=== PATIENT | male | born 1995 | race Caucasian/White ===

== ENCOUNTER 2025-08-07 08:39 | Emergency (ER) | payer OTHER, SELFPAY ==
[2025-08-07 08:49] VITALS: BP 132/66; PULSE 85; RESP 18; TEMP 36.9; O2SAT 100
--- OUTSIDE RECORDS SUMMARY | 2025-08-07 09:12 | XMS_ITS | Clinical Summary ---
Author Organization [facility] [address] Address [address] [place] [id number] Care Team Providers Care It Teacher Name Role Phone Unknown, Notinfile Primary Care Provider Unavail able Allergies No known active allergies Medications sertraline (ZOLOFT) 25 mg tablet Take 25 mg by mouth daily 2 Active buPROPion XL (WELLBUTRIN XL) 300 mg 24 hr tablet Take 300 mg by mouth every morning 2 Active testosterone cypionate (DEPO-TESTOTERON E) 200 mg/mL injection INJECT 0.3ML INTO THE MUSCLE EVERY WEEK 2 Active BD Luer-Rea Syringe 1 mL 20 gauge x 1 syringe as directed 2 Active BD Regular Bevel [place] 25 gauge x 5/8 needle as directed 2 Active nitrofurantoin monohydrate (MACROBID) 100 mg capsule 2 Active Active Problems No known active problems Social History Tobacco Use Types Packs/Day Years Used Date Smoking Tobacco: Never Smokeless Tobacco: Never Personal Safety Answer Date Recorded Getting School Help Needed Not on file 12/18 Comments Unknown Sex and Gender Information Value Date Recorded Sex Assigned at Not on file Legal Sex Male 5:39 PM CDT Gender Identity Transgender Male 05/29/2022 7:19 PM CDT Sexual Orientation Not on file Obstetrics History Last Filed Vital Signs Vital Sign Reading Time Taken Comments Blood Pressure 125/80 05/29/2022 7:10 PM CDT Pulse 78 05/29/2022 7:10 PM CDT Temperature 36.9 C (98.4 F) 05/29/2022 7:10 PM CDT Respiratory Rate 16 05/29/2022 7:10 PM CDT Oxygen Saturation 99% 05/29/2022 7:10 PM CDT Inhaled Oxygen Concentration - - Weight 61 kg (134 lb 6.4 oz) 05/29/2022 7:10 PM CDT Height 167.6 cm (5' 6) 05/29/2022 7:10 PM CDT Body Mass Index 21.69 05/29/2022 7:10 PM CDT Plan of Treatment Not on file [facility] Care Teams It Teacher Relationship Specialty Start Date End Date Unknown, Notinfile PCP - General 05/29/22
--- OUTSIDE RECORDS SUMMARY | 2025-08-07 09:12 | XMS_ITS | Patient Health Record ---
Author Organization [facility] Address [address] [facility] [address] [place] [phone] Care Team Providers Care Process Technician Name Role Phone Young Hooker MD Primary Care Provider Unavail able Reason For Referral No Information Medications Medication SIG (Take, Route, Frequency, Duration) Notes Start Date End Date Status Symbicort 160-4.5 MCG/ACT 2 puffs Inhala tion Twice a day Active ProAir HFA 108 (90 Base) MCG/ACT 2 puffs as needed Inhalation every 4 hrs Active Nasonex 50 MCG/ACT 2 sprays in each nos tril Nasally Once a day Active hydrOXYzine HCl 10 MG 1 tablet Orally Th ree times a day Active Symbicort 160-4.5 MCG/ACT 2 puffs Inhala tion Twice a day; Duration: 90 days 05/21/2014 Active ProAir HFA 108 (90 Base) MCG/ACT 2 puffs as needed Inhalation every 4 hrs Active Nasonex 50 MCG/ACT 2 sprays in each nos tril Nasally Once a day Active Testosterone Active Multivitamins 1 tablet Orally Once a day Active Problems Problem Type SNOMED Code ICD Code Onset Dates Problem Status W/U Status Risk Notes Problem Asthma (860802469) Asthma (493.90) Active confirmed Problem Allergic rhinitis (88803328) Allergic rhinitis (477.9) Active confirmed Plan Of Treatment Pending Test Test Name Order Date SPIROMETRY 04/09/2014 Insurance Providers Payer Name Payer Address Payer Phone Subscriber Number Group Number Insured Name Patient Relationship to Insured Coverage Start Date Coverage End Date [facility] [address] [place] [id number] Swati Shah Natural Child - Insured has Financial Responsibility [address] [facility] [address] [place] [phone] [id number] Oscar Shah Child - Insured has Financial Responsibility
--- OUTSIDE RECORDS SUMMARY | 2025-08-07 09:12 | XMS_ITS | Clinical Summary ---
Author Organization [facility] Address [address] [place] [address] Care Team Providers Care Pediatric Geneticist Name Role Phone Dean Berger MD Primary Care Provider [phone] Source Comments PLEASE NOTE, if this patient is a minor, it may be UNLAWFUL to discuss sensitive information that is contained in these records (such as FAMILY PLANNING, MENTAL HEALTH or SUBSTANCE ABUSE) with the minor patient's parent or other person without the patient's specific authorization.OCHYOGESH Allergies Active Allergy Reactions Criticality Noted Date Comments Banana High 04/04/2014 Medications albuterol sulfate 90 mcg/actuation inhaler Inhale 2 Puffs into the lungs every 4 (four) hours as needed albuterol sulfate 90 mcg/actuation HFA aerosol inhaler 01/20/20 22 Active cetirizine (ZYRTEC) 10 mg tabletIndication s:Non-seasonal allergic rhinitis, unspecified trigger Take 1 Tablet by mouth once daily 09/04/20 24 Active fluticasone (FLONASE) 50 mcg/actuation nasal sprayIndications :Non-seasonal allergic rhinitis, unspecified trigger Place 1 [place] in both nostrils 2 (two) times daily as needed for rhinitis or allergies 16 g 09/04/20 24 Active hydrOXYzine HCL (ATARAX) 10 mg tablet Take 10 mg by mouth nightly at bedtime as needed for anxiety or sleep 09/07/20 24 Active traZODone (DESYREL) 50 mg tablet Take 50 mg by mouth nightly at bedtime as needed 02/28/20 25 Active needle, disp, 20 G 20 gauge x 1 1 ndleIndications: Gender incongruence 1 Needle by miscellaneous route once a week , to draw up. 20 Each 05/09/20 25 Active needle, disp, 25 gauge (BD REGULAR BEVEL NEEDLES) 25 gauge x 5/8 ndleIndications: Gender incongruence 1 Needle Free Injection by NOT APPLICABLE route once a week To adminster. 20 Each 05/09/20 25 Active syringe, disposable, (BD LUER-NATALIYA SYRINGE) 1 mL syrgIndications: Gender incongruence 1 Syringe by miscellaneous route once a week , to draw up. 20 Each 05/09/20 25 Active drospirenone-eth inyl estradioL (NAVA) 3-0.02 mg per tabletIndication s:Gender incongruence Take 1 Tablet by mouth once daily , use all active pills, then discard placebo and immediately start next pack (continuous suppression). 112 Tablet 1 05/09/20 25 Active lisdexamfetamine 10 mg cap Take 10 mg by mouth daily. 06/07/20 25 Active estradioL (ESTRACE) 0.01 % (0.1 mg/gram) vaginal creamIndications :Vaginal atrophy Place 2 g vaginally nightly at bedtime for 14 days, THEN 2 g 2 times a week. 42.5 g 1 06/12/20 25 026 Active testosterone cypionate (DEPO-TESTOSTERO NE) 200 mg/mL injectionIndicat ions:Gender incongruence Inject 0.25 mL into the muscle once a week. 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 Continue current plan, check monitoring labs today. Family planning counseling 11/01/2024 Assessment & Plan (11/01/2024 3:06 PM TELEHEALTH NURSE EDUCATOR): Reviewed options, will start nuvaring Routine screening for STI (sexually transmitted infection) 09/04/2024 Sore throat, chronic 10/20/2023 Assessment & Plan (10/20/2023 12:30 PM TELEHEALTH NURSE EDUCATOR): M/l from PND from chronic AR, refer to A/I Need for vaccination 10/20/2023 Assessment & Plan (10/20/2023 12:31 PM TELEHEALTH NURSE EDUCATOR): Recommended flu and COVID Screening, cervical cancer 11/09/2021 Depressive disorder, major rcr, unspecified 05/18 Assessment & Plan (05/09/2025 12:23 PM CDT): Connected to psychiatry, therapy Currently off tx Assessment & Plan (09/04/2024 5:43 PM TELEHEALTH NURSE EDUCATOR): Connected to psychiatry, therapy Currently off tx Assessment & Plan (10/20/2023 12:29 PM TELEHEALTH NURSE EDUCATOR): Mood stable, cont' SSRI Reestablish with therapy Recurrent UTI 09/12/2019 Vaginal atrophy 08/20/2017 Assessment & Plan (11/01/2024 3:07 PM TELEHEALTH NURSE EDUCATOR): Monitor response to nuvaring Assessment & Plan (09/04/2024 5:44 PM TELEHEALTH NURSE EDUCATOR): Controlled, con't maintenance vaginal estradiol Assessment & Plan (10/20/2023 12:30 PM TELEHEALTH NURSE EDUCATOR): Controlled, con't maintenance vaginal estradiol Irritable bowel syndrome 01/15/2017 Allergic rhinitis NOS 04/03/2015 Acne other 04/03/2015 Asthma, intermittent, mild 04/03/2015 SCREENING FOR LIPOID DISORDERS 04/04/2014 Resolved Problems Problem Noted Date Diagnosed Date Resolved Date Abnormal weight gain 09/04/2024 025 Family history of hypercholesterolemia 05/09/2018 10/20/2023 Family history of cardiovascular disease 05/09/2018 10/20/2023 Exam routine 05/09/2018 10/20/2023 STD Screening 01/15/2017 09/04/2024 Endocrine disorder NOS 04/28/201505/09 Assessment & Plan (11/01/2024 3:05 PM TELEHEALTH NURSE EDUCATOR): Doing well on current hormone therapy, good adherence. Continue current plan, monitoring labs reviewed Assessment & Plan (09/04/2024 5:44 PM TELEHEALTH NURSE EDUCATOR): Doing well on current hormone therapy, good adherence. Continue current plan, monitoring labs reviewed Assessment & Plan (10/20/2023 12:29 PM TELEHEALTH NURSE EDUCATOR): Doing well on current hormone therapy, good adherence. Continue current plan, monitoring labs reviewed Encounters Date Type Department Care Team Description 05/09/2025 11:40 AM CDT Telemedicine Visit [facility] [address] [place] [address] Dean Berger MD from Last 3 Months Immunizations Immunization Administration Dates Next Due Flu, Preservative Free 08/03/2022,06/19/2018 INFLUENZA, SEASONAL, INJECTABLE 07/22/2024,08/21,12/11/2015 RANDOLPH COVID-19 VACCINE 12/22/2020 PFIZER COVID VACCINE, PURPLE CAP, 12+ 08/27/2021 PNEUMOCOCCAL CONJUGATE PCV 20 (Prevnar 20) 08/01 PNEUMOCOCCAL POLYSACCHARIDE PPV23 (Pneumovax 23) 04/25/2015 TDAP 06/17/2018 Family History Medical History Relation Name Comments Alcohol/Drug Abuse Brother 3 Diabetes Brother 3 Hypertension Brother 3 aDHD Brother 3 Depression Father mood NOS Diabetes Maternal Grandfather Cancer Maternal Grandmother Diabetes Maternal Grandmother Heart attack Maternal Grandmother Hypertension Mother Lung Disease Mother asthma chronic pain Mother High Cholesterol Other No Known Problems Paternal Grandfather No Known Problems Paternal Grandmother Relation Name Status Comments Brother 3 Father Alive Maternal Grandfather Maternal Grandmother Mother Alive Other Paternal Grandfather Paternal Grandmother Social History Tobacco Use Types Packs/Day Years Used Date Smoking Tobacco: Never Smokeless Tobacco: Never Tobacco Cessation:Counseling Given: Not Answered Alcohol Use Standard Drinks/Week Comments Yes 3 (1 standard drink = 0.6 oz pur e alcohol) Social Connections Answer Date Recorded Connectedness 0 07/12/2024 Financial Resource Strain Answer Date R ecorded Financial Resource Strain 0 2021 Stress Answer Date Recorded Stress 0 06/26/2022 Physical Activity Answer Date Recorded Physical Activity 0 06/26/2022 Food Insecurity Answer Date Recorded Food 0 07/13/2024 Transportation Needs Answer Date Record ed Transportation 0 06/26/2022 Housing Stability Answer Date Recorded Housing 0 06/26/2022 Safety and Environment Answer Date Chris rded Safety 0 06/26/2022 Utilities Answer Date Recorded Utilities 0 06/26/2022 Employment Answer Date Recorded Stress 0 07/12/2024 Comments Unknown Sex and Gender Information Value Date Recorded Sex Assigned at Female 10/20/2023 9:54 AM PST Legal Sex Female 6:33 PM PDT Gender Identity Non-binary/genderqueer 9:54 AM PST Sexual Orientation Queer 07/05/2022 6: 15 PM PDT Last Filed Vital Signs Vital Sign Reading Time Taken Comments Blood Pressure 124/70 09/04/2024 5:13 PM TELEHEALTH NURSE EDUCATOR Pulse 80 09/04/2024 5:13 PM TELEHEALTH NURSE EDUCATOR Temperature 36.7 C (98 F) 06/11/2022 2:06 PM CDT Respiratory Rate 17 09/04/2024 5:13 PM TELEHEALTH NURSE EDUCATOR Oxygen Saturation 96% 09/04/2024 5:13 PM TELEHEALTH NURSE EDUCATOR Inhaled Oxygen Concentration - - Weight 70.1 kg (154 lb 9.6 oz) 09/04/2024 5:13 P M TELEHEALTH NURSE EDUCATOR Height 167.6 cm (5' 6) 09/04/2024 5:13 PM TELEHEALTH NURSE EDUCATOR Body Mass Index 24.95 09/04/2024 5:13 PM TELEHEALTH NURSE EDUCATOR Plan of Treatment Health Maintenance Due Date Last Done Comments Anxiety Screening 1996 HPV Screening (self-collect) 1996 HPV Screening 1996 Hepatitis C Screening 1996 Pap + HPV 1996 Relationship Safety Screening/Counseling 02/21/2011 Depression Monitoring 02/08/2022 11/10/2021 , 10/13/2021, 09/13/2019 Imm-HPV (1 - 3-dose SCDM series) 02/21/2023 Alcohol and Drug Screen 10/18/2024 Cervical Cancer Screening 11/10/2024 Pap Smear 11/10/2024 11/10/2021 [id number] ( season) 2025 08/01/2024, 08/02/2022, 08/27/2021, Additional history exists Imm-Influenza (#1) 2025 07/22/2024, 1 , 06/19/2018, Additional history exists Syphilis Screening 09/04/2025 09/04/2024, 0 06/11/2022, 10/13/2021, Additional history exists Tobacco Screening 05/09/2026 05/09/2025 Hypertension Screening (#1) 09/04/2027 Imm-DTaP/Tdap/Td (2 - Td or Tdap) 06/17/2028 018 Imm-Pneumococcal Discontinued 08/01/2024, 04/25/2015 HIV Screening Completed 09/04/2024, 05/19, 10/13/2021, Additional history exists Cervical Ablation/Cold-Knife Conization Discontinued Cervical Cryotherapy Discontinued Colposcopy Discontinued Excision/Leep Discontinued HPV Genotyping Discontinued Imm-Hepatitis A Discontinued Imm-Hepatitis B Discontinued Vaginal Pap Discontinued Vulvoscopy Discontinued Procedures Procedure Name Priority Date/Time Associated Diagnosis Comments OTHER ORDERS SCANNED DOCUMENT 07/02/2025 2:00 AM CDT TESTOSTERONE, TOTAL, LC/MS/MS Routine 06/19/2025 11:29 AM CDT Gender incongruence ESTRADIOL, SERUM Routine 06/19/2025 11:2 9 AM CDT Gender incongruence COMPREHENSIVE METABOLIC PANEL W/ADJ CALCIUM Routine 06/19/2025 11:29 AM CDT Gender incongruence BLOOD COUNT COMPLETE AUTO&AUTO DIFRNTL WBC Routine 06/19/2025 11:29 AM CDT Gender incongruence HIV 1/2 AG & AB W/RFLX (4TH GEN) Routine 09/04/2024 5:54 PM TELEHEALTH NURSE EDUCATOR Routine screening for STI (sexually transmitted infection) SYPHILIS ANTIBODY CASCADING REFLEX Routine 09/04/2024 5:54 PM TELEHEALTH NURSE EDUCATOR Routine screening for STI (sexually transmitted infection) THINPREP IMAGING PAP REFLEX HPV MRNA E6/E7, CT/GT (Q) Routine 11/10/2021 6:07 PM TELEHEALTH NURSE EDUCATOR from Last 3 Months or Most Recently Relevant to Health Maintenance Results * OTHER ORDERS SCANNED DOCUMENT (07/02/2025 2:00 AM CDT) 07/02/2025 2:00 AM CDT us Dean Berger MD SCAN OTHER ORDERS Final Result * COMPREHENSIVE METABOLIC PANEL WITH ADJUSTED CALCIUM,SERUM Routine (06/19/2025 11:29 AM CDT) GLUCOSE 88 65 - 99 mg/dL 06/20/2025 6:52 AM CDT [facility] [place] [email or web address] UREA NITROGEN (BUN) 14 7 - 25 mg/dL 06/20/2025 6:52 AM CDT [facility] [email or web address] CREATININE 0.90 0.50 - 0.96 mg/dL 06/20/2025 6:52 AM CDT [facility] [email or web address] EGFR 89 > OR = 60 mL/min/1. 73m2 06/20/2025 6:52 AM CDT [facility] [email or web address] BUN/CREATININE RATIO SEE NOTE: 6 - 22 (calc) 06/20/2025 6:52 AM CDT [facility] SODIUM 136 135 - 146 mmol/L 06/20/2025 6:52 AM CDT [facility] POTASSIUM 4.9 3.5 - 5.3 mmol/L 06/20/2025 6:52 AM CDT [facility] CHLORIDE 102 98 - 110 mmol/L 06/20/2025 6:52 AM CDT [facility] CARBON DIOXIDE 29 20 - 32 mmol/L 06/20/2025 6:52 AM CDT [facility] CALCIUM 9.2 8.6 - 10.2 mg/dL 06/20/2025 6:52 AM CDT [facility] CALCIUM (ADJUSTED FOR ALBUMIN) 9.2 8.6 - 10.2 mg/dL (calc) 06/20/2025 6:52 AM CDT [facility] PROTEIN, TOTAL 6.8 6.1 - 8.1 g/dL 06/20/2025 6:52 AM CDT [facility] ALBUMIN 4.4 3.6 - 5.1 g/dL 06/20/2025 6:52 AM CDT [facility] GLOBULIN 2.4 1.9 - 3.7 g/dL (calc) 06/20/2025 6:52 AM CDT [facility] ALBUMIN/GLOBULI N RATIO 1.8 1.0 - 2.5 (calc) 06/20/2025 6:52 AM CDT [facility] BILIRUBIN, TOTAL 0.5 0.2 - 1.2 mg/dL 06/20/2025 6:52 AM CDT [facility] ALKALINE PHOSPHATASE 56 31 - 125 U/L 06/20/2025 6:52 AM CDT [facility] [place] AST 16 10 - 30 U/L 06/20/2025 6:52 AM CDT [facility] ALT 27 6 - 29 U/L 06/20/2025 6:52 AM CDT [facility] Serum Blood / Unknown 06/19/2025 1 1:29 AM CDT 06/20/2025 6:04 AM CDT Narrative [facility] - 06/20/2025 6:55 AM CDT . Fasting reference interval . Not Reported: BUN and Creatinine are within reference range. . us Dean Berger MD LAB - BLOOD DRAW Final Result [facility] [address] [facility] [place] [address] [facility] [address] [facility] [place] [address] * (ABNORMAL) TESTOSTERONE, TOTAL, LC/MS/MS Routine (06/19/2025 11:29 AM CDT) TESTOSTERONE, TOTAL, LC/MS/MS 1,437(H) 2 - 45 ng/dL 06/22/2025 11:20 AM CDT [facility] Blood Blood / Unknown 06/19/2025 1 1:29 AM CDT 06/20/2025 1:08 AM CDT Narrative [facility]ON[facility] MCCLELLAND - 06/22/2025 11:25 AM CDT . For additional information, please refer to [email or web address]/faq/TotalTestosteroneLCMSMS (This link is being provided for informational/educational purposes only.) (Note) . This test was developed and its analytical performance characteristics have been determined by [employer]. It has not been cleared or approved by the FDA. This assay has been validated pursuant to the CLIA regulations and is used for clinical purposes. . . [facility] [address] [address],[address] [place] [address] Aaliyah Mckinney MD, PhD Dean Berger MD LAB - BLOOD DRAW Final Result [facility] [address] [place] [address] [place] [id number], [facility] [address] [place] [id number] * ESTRADIOL, SERUM Routine (06/19/2025 11:29 AM CDT) [facility] ESTRADIOL 33 pg/mL 06/20/2025 4:49 AM CDT [facility] [place] Blood Blood / Unknown 06/19/2025 1 1:29 AM CDT 06/20/2025 1:14 AM CDT Narrative [facility] JEFFRY FERREIRA - 06/20/2025 4:52 AM CDT Reference Range Follicular Phase: 19-144 Mid-Cycle: 64-357 Luteal Phase: 56-214 Postmenopausal: < or = 31 . Reference range established on post-pubertal patient population. No pre-pubertal reference range established using this assay. For any patients for whom low Estradiol levels are anticipated (e.g. males, pre-pubertal children and hypogonadal/post-menopausal females), the [employer] [facility] Estradiol, Ultrasensitive, LCMSMS assay is recommended (order code 31664). . Please note: patients being treated with the drug fulvestrant (Faslodex(R)) have demonstrated significant interference in immunoassay methods for estradiol measurement. The cross reactivity could lead to falsely elevated estradiol test results leading to an inappropriate clinical assessment of estrogen status. [employer] order code [id number], Ultrasensitive LC/MS/MS demonstrates negligible cross reactivity with fulvestrant. Dean Berger MD LAB - BLOOD DRAW Final Result [facility] [address] [place] [address] [facility] [address] [facility] [address] * (ABNORMAL) BLOOD COUNT COMPLETE AUTO&AUTO DIFRNTL WBC Routine (06/19/2025 11:29 AM CDT) Pathologist [facility] WHITE BLOOD CELL COUNT 6.2 3.8 - 10.8 Thousand/ uL 06/20/2025 3:25 AM CDT [facility] [place] RED BLOOD CELL COUNT 5.08 3.80 - 5.10 Million/u L 06/20/2025 3:25 AM CDT [facility] HEMOGLOBIN 15.1 11.7 - 15.5 g/dL 06/20/2025 3:25 AM CDT [facility] HEMATOCRIT 46.8(H) 35.0 - 45.0 % 06/20/2025 3:25 AM CDT [facility] MCV 92.1 80.0 - 100.0 fL 06/20/2025 3:25 AM CDT [facility] MCH 29.7 27.0 - 33.0 pg 06/20/2025 3:25 AM CDT [facility] MCHC 32.3 32.0 - 36.0 g/dL 06/20/2025 3:25 AM CDT [facility] RDW 11.6 11.0 - 15.0 % 06/20/2025 3:25 AM CDT [facility] PLATELET COUNT 219 140 - 400 Thousand/ uL 06/20/2025 3:25 AM CDT [facility] MPV 11.0 7.5 - 12.5 fL 06/20/2025 3:25 AM CDT [facility] ABSOLUTE NEUTROPHILS 3,900 1,500 - 7,800 cells/uL 06/20/2025 3:25 AM CDT [facility] ABSOLUTE LYMPHOCYTES 1,742 850 - 3,900 cells/uL 06/20/2025 3:25 AM CDT [facility] ABSOLUTE MONOCYTES 459 200 - 950 cells/uL 06/20/2025 3:25 AM CDT [facility] ABSOLUTE EOSINOPHILS 68 15 - 500 cells/uL 06/20/2025 3:25 AM CDT [facility] ABSOLUTE BASOPHILS 31 0 - 200 cells/uL 06/20/2025 3:25 AM CDT [facility] NEUTROPHILS 62.9 % 06/20/2025 3:25 AM CDT [facility] LYMPHOCYTES 28.1 % 06/20/2025 3:25 AM CDT [facility] MONOCYTES 7.4 % 06/20/2025 3:25 AM CDT [facility] EOSINOPHILS 1.1 % 06/20/2025 3:25 AM CDT [facility] BASOPHILS 0.5 % 06/20/2025 3:25 AM CDT [facility] Blood Blood / Unknown 06/19/2025 1 1:29 AM CDT 06/20/2025 2:22 AM CDT Narrative [facility] YANGE - 06/20/2025 3:28 AM CDT For adults, a slight decrease in the calculated MCHC value (in the range of 30 to 32 g/dL) is most likely not clinically significant; however, it should be interpreted with caution in correlation with other red cell parameters and the patient's clinical condition. Dean Berger MD LAB - BLOOD DRAW Final Result [facility] [address] [facility] [address] [facility] [address] [place] [address] * SYPHILIS ANTIBODY CASCADING REFLEX (09/04/2024 5:54 PM TELEHEALTH NURSE EDUCATOR) [facility] T. PALLIDUM AB, EIA NEGATIVE NEGATIVE 09/05/2024 12:15 PM TELEHEALTH NURSE EDUCATOR [facility] Blood Blood / Unknown 09/04/2024 5 :54 PM TELEHEALTH NURSE EDUCATOR 09/04/2024 10:56 PM TELEHEALTH NURSE EDUCATOR Narrative [facility] - 09/05/2024 12:18 PM TELEHEALTH NURSE EDUCATOR . No antibodies to T. pallidum (the agent causing syphilis) were detected in the specimen. This result, however, does not exclude very recent T. pallidum infection; testing of a second specimen, collected 2-4 weeks after this specimen, is recommended if the index of suspicion for recent infection is high. . Dean Berger MD LAB - BLOOD DRAW Final Result [facility] [facility] [address] [address] [employer] [facility] [address] [place] [address] * HIV 1/2 AG & AB W/RFLX (4TH GEN) (09/04/2024 5:54 PM TELEHEALTH NURSE EDUCATOR) HIV AG/AB, 4TH GEN NON-REACTI VE NON-REACT ROGELIO 09/05/2024 3:44 AM TELEHEALTH NURSE EDUCATOR [facility] JEFFRY FERREIRA Blood Blood / Unknown 09/04/2024 5 :54 PM TELEHEALTH NURSE EDUCATOR 09/04/2024 11:06 PM TELEHEALTH NURSE EDUCATOR Narrative [facility] FERREIR[facility] - 09/05/2024 3:46 AM TELEHEALTH NURSE EDUCATOR HIV-1 antigen and HIV-1/HIV-2 antibodies were not detected. There is no laboratory evidence of HIV infection. . PLEASE NOTE: This information has been disclosed to you from records whose confidentiality may be protected by state law. If your state requires such protection, then the state law prohibits you from making any further disclosure of the information without the specific written consent of the person to whom it pertains, or as otherwise permitted by law. A general authorization for the release of medical or other information is NOT sufficient for this purpose. . For additional information please refer to http://education.[employer].K[employer]/faq/JRX271 (This link is being provided for informational/ educational purposes only.) . . The performance of this assay has not been clinically validated in patients less than 2 years old. . us Dean Berger MD LAB - BLOOD DRAW Final Result [facility] [place] [place] [address] [place] [address] [facility] [address] [place] [address] * THINPREP IMAGING PAP REFLEX HPV MRNA E6/E7, CT/GT (Q) (11/10/2021 6:07 PM TELEHEALTH NURSE EDUCATOR) CLINICAL INFORMATION None given 2 6:07 PM TELEHEALTH NURSE EDUCATOR DATA CONVERSION LMP NONE GIVEN 2 6:07 PM TELEHEALTH NURSE EDUCATOR DATA CONVERSION PREV. PAP NONE GIVEN 2 6:07 PM TELEHEALTH NURSE EDUCATOR DATA CONVERSION PREV. BX NONE GIVEN 2 6:07 PM TELEHEALTH NURSE EDUCATOR DATA CONVERSION SOURCE Cervix 2 6:07 PM TELEHEALTH NURSE EDUCATOR DATA CONVERSION STATEMENT OF ADEQUACY Satisfactory for evaluation. Endocervical/slaughter sformation zone component present. Age and/or menst... 2 6:07 PM TELEHEALTH NURSE EDUCATOR DATA CONVERSION INTERPRETATION/RES ULT Negative for intraepithelial lesion or malignancy. 2 6:07 PM TELEHEALTH NURSE EDUCATOR DATA CONVERSION COMMENT This Pap test has been evaluated with computer assisted technology. 2 6:07 PM TELEHEALTH NURSE EDUCATOR DATA CONVERSION MATH TEACHER AUGUSTA VANESSA(ASCP) CT Screening location: [address] [address] 2 6:07 PM TELEHEALTH NURSE EDUCATOR DATA CONVERSION CHLAMYDIA TRACHOMATIS RNA, TMA NOT DETECTED NOT DETECTED 2 6:07 PM TELEHEALTH NURSE EDUCATOR DATA CONVERSION NEISSERIA GONORRHOEAE RNA, TMA NOT DETECTED NOT DETECTED 2 6:07 PM TELEHEALTH NURSE EDUCATOR DATA CONVERSION 11/10/2021 6:07 PM TELEHEALTH NURSE EDUCATOR us [facility] - PATHOLOGY AND CYTOLOGY AMB ULATORY Final Result DATA CONVERSION from Last 3 Months or Most Recently Relevant to Health Maintenance Insurance [employer] Care Teams Pediatric Geneticist Relationship Specialty Start Date End Date Dean Berger MD [address] [place] [address] PCP - General 07/06/22
--- OUTSIDE RECORDS SUMMARY | 2025-08-07 09:12 | XMS_ITS | Clinical Summary ---
Author Organization [facility] Address [address] [place] [address] Phone Care Team Providers Care Catapult And Arresting Gear Officer Name Role Phone Reena Zuluaga APRN, CNP Primary Care Pr ovider Medications buPROPion (WELLBUTRIN) 75 MG TabletIndicatio ns:Major Depressive Disorder Take 75 mg by mouth 3 times daily. 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 03/08/2025 Encounters Date Type Department Care Team Description 05/16/2025 1:00 PM CDT Outpatient Clinic Visit [facility] [address] [place] [address] Shahriar Schilling, MALATHI Attention deficit hyperactivity disorder, combined presentation, moderate (Primary Dx) Discharge Disposition: Discharged to home or Selfcare 05/16/2025 Travel from Last 3 Months Social History Tobacco Use Types Packs/Day Years Used Date Smoking Tobacco: Never Assessed Sex and Gender Information Value Date Recorded Sex Assigned at Not on file Legal Sex Male 11:09 AM CDT Gender Identity Not on file Sexual Orientation Not on file Plan of Treatment Health Maintenance Due Date Last Done Comments Hepatitis C Virus (HCV) Screening 1996 Hepatitis B Immunization (1 of 3 - 19+ 3-dose series) 02/21/2015 Human Papillomavirus (HPV) Immunization (1 - 3-dose SCDM series) 02/21/2023 Influenza Immunization (#1) 2025 10/0 02/2024, 08/03/2022, 06/20/2018, Additional history exists SARS-COV-2 Immunization (2024- season) 2025 08/01/2024, 08/02/2022, 08/28/2021, Additional history exists Respiratory Syncytial Virus (RSV) Immunization (Adult) (1 - 1-dose 75+ series) 02/21/2071 TdaP Immunization Completed 06/20/2018, 06/18/2018 Pneumococcal Immunization Combined Aged Out 08/01/2024, 04/26/2015 No longer eligibl e based on patient's age to complete this topic Meningococcal Immunization (ACWY) Aged Out No longer eligible based on patient's age to complete this topic Rotavirus Immunization Aged Out No lo nger eligible based on patient's age to complete this topic Insurance [employer] SOI Care Teams Catap[employer] And Arresting Gear Officer Relationship Specialty Start Date End Date Reena Zuluaga, DIVERSITY SPECIALIST, BOBTAILER [address] [address] PCP - General Advanced Practice Nurse 01/01/25
--- NOTE | 2025-08-07 09:13 | ED.GENADULT ---
HPI - General Adult General Chief complaint: Skin/Abscess/Foreign Body Stated complaint: Right leg burn Source: patient Mode of arrival: ambulatory Limitations: no limitations History of Present Illness HPI narrative: Patient presents for evaluation of a burn to the right thigh that occurred 2 days ago. Hot tea spilled on his right thigh. He now has a blistered lesion surrounding redness. He states pain is constant, 2/10 in severity, without descriptive quality. He is not diabetic. He is not taking any medication to assist with his symptoms. Related Data Home Medications ?Medication ?Instructions ?Recorded ?Confirmed ?Last Taken ?Type dextroamphetamine-amphetamine ER 5 PO 08/07/25 Unknown History mg 24hr capsule,extend release drospirenone 3 mg-ethinyl tablet 08/07/25 Unknown History estradiol 0.02 mg tablet (Vestura (28)) estradiol 0.01% (0.1 mg/gram) vaginal 08/07/25 Unknown History vaginal cream lisdexamfetamine 10 mg capsule mg 08/07/25 Unknown History Allergies Allergy/AdvReac Type Severity Reaction Status Date / Time No Known Allergies Allergy Verified 08/07/25 08:49 Review of Systems Review of Systems: CONSTITUTIONAL: Denies fever, chills, or sweats. EYES: Denies visual changes, redness, or discharge. ENT: Denies rhinorrhea, congestion, sore throat, or otalgia. CARDIOVASCULAR: Denies chest pain, palpitations, or edema. RESPIRATORY: Denies cough or dyspnea. GASTROINTESTINAL: Denies abdominal pain, nausea, vomiting, or diarrhea. GENITOURINARY: Denies dysuria or hematuria. SKIN: Reports blistered lesion to right thigh with surrounding redness MUSCULOSKELETAL:Reports right thigh pain NEUROLOGIC: Denies headache, numbness, dizziness, or weakness. PSYCHIATRIC: Denies anxiety or depression. [facility] Past Medical History Medical History No pertinent past medical history Surgical History Surgical History No pertinent past surgical history Family History Family History Mother Family history non-contributory Social History Social History Smoking status: Never smoker Substance use: current Substance use type: marijuana Spiritual care concerns: No Exam Narrative: GENERAL: Well-appearing, well-nourished, and in no acute distress. HEAD: Normocephalic, atraumatic. EYES: PERRLA and EOMI. ENT: Nares clear, no rhinorrhea or epistaxis. Mucous membranes moist. Oropharynx without tonsillar hypertrophy exudate or other lesions. Bilateral TMs pearly churchill nonbulging NECK: Supple. No adenopathy or masses. No carotid bruits or JVD CHEST: Clear to auscultation. No respiratory distress. No wheezes rales or rhonchi HEART: Regular rate and rhythm. No murmur heard. Normal peripheral pulses. ABDOMEN: Soft, nontender, nondistended, normal active bowel sounds. EXTREMITIES: Normal range of motion. No edema. SKIN: There is an approximately 2 cm blistered lesion to the anterior aspect of the right thigh with 9 x 23 cm area of surrounding erythema. There are some other areas of erythema proximal to the primary site of redness. NEURO: No focal deficits. Alert and oriented x3. PSYCH: Normal mood and affect. Course Course Emergency Course: This this is a 30-year-old that presented for evaluation of a burn to the right thigh. Discharge with Silvadene. Wqwi-xye-rkgyhye agents for pain control. Increase fluid. Follow up with primary provider. Go to the ER for worsening symptoms. Pt in agreement with plan of care. Level of Care: Express Care Visit Vital Signs Vital signs: Vital Signs Temperature 36.9 C 08/07/25 08:49 Pulse Rate 85 08/07/25 08:49 Respiratory Rate 18 08/07/25 08:49 Blood Pressure 132/66 08/07/25 08:49 Pulse Oximetry 100 08/07/25 08:49 Oxygen Delivery Room Air 08/07/25 08:49 Temperature 36.9 C 08/07/25 08:49 Pulse Rate 85 08/07/25 08:49 Respiratory Rate 18 08/07/25 08:49 Blood Pressure 132/66 08/07/25 08:49 Pulse Oximetry 100 08/07/25 08:49 Oxygen Delivery Room Air 08/07/25 08:49 Medical Decision Making Vital Signs Vital Signs: Vital Signs Temperature 36.9 C 08/07/25 08:49 Pulse Rate 85 08/07/25 08:49 Respiratory Rate 18 08/07/25 08:49 Blood Pressure 132/66 08/07/25 08:49 Pulse Oximetry 100 08/07/25 08:49 Oxygen Delivery Room Air 08/07/25 08:49 Temperature 36.9 C 08/07/25 08:49 Pulse Rate 85 08/07/25 08:49 Respiratory Rate 18 08/07/25 08:49 Blood Pressure 132/66 08/07/25 08:49 Pulse Oximetry 100 08/07/25 08:49 Oxygen Delivery Room Air 08/07/25 08:49 Discharge Plan Discharge Clinical Impression: Partial thickness burn Patient Disposition: Home Condition: Stable Instructions: Antibiotic Form Patient Language: Lithuanian Prescriptions: New silver sulfadiazine [SSD] 1 % cream 1 applic topical BID Qty: 400 0RF Rx Instructions: apply a 1.5 mm thickness No Action estradiol 0.01 % (0.1 mg/gram) cream VAGINAL dextroamphetamine-amphetamine 5 mg capsule,extended release 24hr PO drospirenone-ethinyl estradiol [Vestura (28)] 3-0.02 mg tablet lisdexamfetamine 10 mg capsule Follow-up/Referrals: Josr Norman MD [Physician, Family Practice] Time of Disposition: 09:02
== END 2025-08-07 09:04 | disposition home or self-care (01) ==
PROVIDERS: Emergency Provider Nurse Practitioner
DX: T24.211A Burn of second degree of right thigh, initial encounter (principal); T31.0 Burns involving less than 10% of body surface; Z79.899 Other long term (current) drug therapy; X10.0XXA Contact with hot drinks, initial encounter
CPT/HCPCS: 99213; G0463